=== PATIENT | male | born 1985 | race Asian ===

== ENCOUNTER 2017-02-05 11:59 | Inpatient (IN) | payer BC, OTHER ==
[~2017-02-05] VITALS: Ht 165.1 cm; Wt 72.6 kg
[~2017-02-05 11:59] MED LIST: ALBU0.084
[2017-02-05] MEDS ORDERED: KETOROLAC TROMETH 30 MG/ML 1ML VIAL IV ONE (13:45)
[2017-02-05] MEDS ORDERED: SODIUM CHLORIDE 0.9% 1,000 ML IVB ONE (13:45)
[2017-02-05] MEDS ORDERED: ONDANSETRON HCL 4 MG/2 ML VIAL IV ONE (13:45)
[2017-02-05] MEDS ORDERED: SODIUM CHLORIDE 0.9% 1,000 ML IV ONE (13:45)
[2017-02-05 13:53] LABS: Basophils # (auto) 0 uL; Basophils % (auto) 0.1 % (0.0-2.0); Eosinophils # (auto) 0 uL; Eosinophils % (auto) 0.1 % (0.0-7.0); Hematocrit 47.5 % (41.0-53.0); Hemoglobin 16.1 g/dL (13.5-17.5); Lymphocytes # (auto) 0.9 uL; Lymphocytes % (auto) 8.5 % (10.0-50.0); Mean Corpuscular Hemoglobin 30.6 pg (28.0-32.0); Mean Corpuscular Hgb Conc. 33.9 g/dL (32.0-36.0); Mean Corpuscular Volume 90.4 fL (80.0-100.0); Monocytes # (auto) 1.1 uL; Monocytes % (auto) 10.9 % (0.0-12.0); Neutrophils # (auto) 8.1 uL; Neutrophils % (auto) 80.4 % (37.0-80.0); Platelet Count (auto) 214 10^3/uL (140-450); Red Cell Distribution Width 13.4 % (11.6-16.0)
[2017-02-05 13:57] LABS: Urine Bilirubin Negative (Negative); Urine Color Yellow (Yellow); Urine Glucose Normal (Normal); Urine Ketone Negative (Negative); Urine Mucus FEW (None Seen); Urine Nitrite Negative (Negative); Urine RBC 1 /hpf (0 - 3); Urine Urobilinogen Normal (Negative); Urine pH 5.5 (5.0-8.0)
[2017-02-05 13:58] LABS: Urine Blood 1+ /uL (Negative)
[2017-02-05 14:39] LABS: Albumin 3.6 g/dL (3.4-5.0); BUN/Creatinine Ratio 8.7; Bilirubin, Total 0.3 mg/dL (0.2-1.0); Calcium 8.4 mg/dL (8.5-10.1); Potassium 3.4 mmol/L (3.5-5.1); Total Protein 7.7 g/dL (6.4-8.2)
[2017-02-05] MEDS ORDERED: metroNIDAZOLE 500MG/100ML 100 ML IV ONE (15:00)
[2017-02-05] MEDS ORDERED: SODIUM CHLORIDE 0.9% 1,000 ML IV SCH (15:04)
[2017-02-05] MEDS ORDERED: MORPHINE SULF INJ 2 MG/ML SYRINGE 1ML IV PRN ×2 (15:15)
[2017-02-05] MEDS ORDERED: HYDROcodone-ACET 5/325MG TAB PO PRN (15:15)
[2017-02-05] MEDS ORDERED: NITROGLYCERIN 0.4 MG SL TAB SL PRN (15:15)
[2017-02-05] MEDS ORDERED: LORazepam 0.5 MG TAB PO PRN (15:15)
[2017-02-05] MEDS ORDERED: PROMETHAZINE HCL 25 MG/ML 1ML IV PRN (15:15)
[2017-02-05] MEDS ORDERED: ACETAMINOPHEN 500 MG TAB PO PRN (15:15)
[2017-02-05] MEDS ORDERED: FAMOTIDINE (10MG/ML) 2ML VL IV SCH ×2 (15:15→15:45)
[2017-02-05] MEDS ORDERED: TEMAZEPAM 15 MG CAP PO PRN (15:15)
[2017-02-05] MEDS ORDERED: cefTRIAXone 1GM/50ML D5W 50 ML IV ONE (15:15)
[2017-02-05] MEDS ORDERED: ALBUTEROL SULF 2.5 MG/0.5ML(0.5%) NEB SOLN NEB PRN (15:15)
[2017-02-05 16:09] VITALS: BP 124/74
[2017-02-05] MEDS ORDERED: metroNIDAZOLE 500MG/100ML 100 ML IV SCH (18:00)
[2017-02-05 20:14] VITALS: BP 128/76
[2017-02-05] MEDS ORDERED: POTASSIUM CHL 20 Meq TABLET PO ONE (20:15)
[2017-02-06] MEDS ORDERED: cefTRIAXone 1GM/50ML D5W 50 ML IV SCH (09:00)
== END 2017-02-05 22:30 | disposition home or self-care (01) | DRG 392 ==
LOC: ER 11:59 → TELE 12:00
PROVIDERS: ADMIT Internal Medicine; ATTEND Internal Medicine
DX: K52.9 Noninfective gastroenteritis and colitis, unspecified (principal); J45.909 Unspecified asthma, uncomplicated; E87.6 Hypokalemia; Z83.3 Family history of diabetes mellitus
CPT/HCPCS: 36415; 71010; 74176; 80053; 81001; 82150; 83690; 85025; 85652; 86141; 94761; 96361; 96365; 96367; 96375; J0696; J1885; J2405; J3490

== ENCOUNTER 2019-07-25 21:41 | Emergency (ER) | payer BC, OTHER ==
[~2019-07-25] VITALS: Ht 165.1 cm; Wt 77.1 kg
[2019-07-25] MEDS ORDERED: IPRATROPIUM BROM 0.5 MG/2.5ML INH SOL NEB ONE (22:00)
[2019-07-25] MEDS ORDERED: ALBUTEROL SULF 2.5 MG/0.5ML(0.5%) NEB SOLN NEB ONE (22:00)
[2019-07-25] MEDS ORDERED: methylPREDNISolone SOD SUCC 125 MG/2 ML VL IV ONE (22:15)
[2019-07-26] VITALS: BP 126/83
== END 2019-07-26 01:02 | disposition home or self-care (01) ==
LOC: ER 21:44
DX: J45.909 Unspecified asthma, uncomplicated (principal)
CPT/HCPCS: 71045; 94640; 96374; 99283; J2930; J7611; J7644

== ENCOUNTER → 2024-06-02 | Outpatient (CLI) | payer BC ==
[2024-06-02 15:03] LABS: Basophils # (auto) 0.1 10 ^3/uL (0-0.2); Eosinophils # (auto) 0.2 10 ^3/uL (0-0.8); Eosinophils % (auto) 2.3 % (0.0-7.0); Hematocrit 47.5 % (41.0-53.0); Hemoglobin 16.3 g/dL (13.5-17.5); Lymphocytes # (auto) 1.9 10 ^3/uL (0.4-5.4); Lymphocytes % (auto) 28.3 % (10.0-50.0); Mean Corpuscular Hemoglobin 31.2 pg (28.0-32.0); Mean Corpuscular Hgb Conc. 34.4 g/dL (32.0-36.0); Mean Corpuscular Volume 90.6 fL (80.0-100.0); Monocytes # (auto) 0.5 10 ^3/uL (0-1.3); Neutrophils # (auto) 4.1 10 ^3/uL (1.6-8.6); Neutrophils % (auto) 60.4 % (37.0-80.0); Nucleated Red Blood Cells % 0.1 %; Platelet Count (auto) 254 10^3/uL (140-450); Red Blood Cells 5.24 10^6/uL (4.5-5.90); Red Cell Distribution Width 13.3 % (11.8-14.3); White Blood Cell 6.7 10^3/uL (4.4-10.8)
[2024-06-02 15:16] LABS: Alanine Aminotransferase 44 U/L (7-40); Albumin 4.7 g/dL (3.2-4.8); Alkaline Phosphatase 92 U/L (46-116); Anion Gap 8 (5-15); Aspartate Aminotransferase 20 U/L (13-40); BUN/Creatinine Ratio 11.1 (10.0-20.0); Blood Urea Nitrogen 10 mg/dL (9-23); Calcium 9.6 mg/dL (8.7-10.4); Carbon Dioxide 23 mmol/L (20-31); Chloride 109 mmol/L (98-107); Cholesterol 185 mg/dL (< 200); Glucose 98 mg/dL (74-106); HDL Cholesterol 47 mg/dL (40-59); LDL Cholesterol 134 mg/dL (< 100); Potassium 3.8 mmol/L (3.5-5.1); Sodium 140 mmol/L (136-145); Triglycerides 84 mg/dL (< 150)
[2024-06-02 15:17] LABS: Bilirubin, Total 0.5 mg/dL (0.2-1.0); Total Protein 7.7 g/dL (5.7-8.2)
== END | disposition home or self-care (01) ==
LOC: LAB 11:20
PROVIDERS: ATTEND Nurse Practitioner Family
DX: I10 Essential (primary) hypertension (principal)
CPT/HCPCS: 36415; 80053; 80061; 84443; 85025